=== PATIENT | male | born 2000 | race African-American/Black ===

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

== ENCOUNTER 2021-08-25 15:36 | Emergency (ER) | payer BC | END 2021-08-25 17:54 | disposition home or self-care (01) | LOC: MW.ED 15:36 | DX: S89.92XA Unspecified injury of left lower leg, initial encounter (principal); X58.XXXA Exposure to other specified factors, initial encounter | CPT/HCPCS: 73564-26-LT; 73564-LT; 99283-25 ==

== ENCOUNTER 2023-03-18 19:41 | Emergency (ER) | payer BC ==
[2023-03-18] MEDS ORDERED: Lidocaine 1% PF 2 ML SDV INJECT ONE (20:37)
[2023-03-18] MEDS ORDERED: Acetaminophen/HYDROcodone 325-5 MG Tab PO ONE (21:01)
[2023-03-18] MEDS ORDERED: Diphtheria,Pertussis(Acell),Tetanus Vaccine 0.5 ML Syringe IM ONE (21:01)
[2023-03-18] MEDS ORDERED: Bacitracin Oint 1 GM U/D Packet TOP ONE (21:01)
== END 2023-03-18 21:28 | disposition home or self-care (01) ==
LOC: MW.ED 19:41
DX: S71.112A Laceration without foreign body, left thigh, initial encounter (principal); Z23 Encounter for immunization; W23.0XXA Caught, crushed, jammed, or pinched between moving objects, initial encounter
CPT/HCPCS: 12001; 90471; 90715; 99282; A9270; 99283; J3490

== ENCOUNTER 2023-03-31 21:15 | Emergency (ER) | payer BC | END 2023-03-31 21:40 | disposition left against medical advice (07) | LOC: MW.ED 21:15 | DX: Z48.02 Encounter for removal of sutures (principal) | CPT/HCPCS: 99281 ==